=== PATIENT | female | born 1965 | race Caucasian/White ===

== ENCOUNTER 2017-05-14 22:42 | Emergency (ER) | payer OTHER ==
[~2017-05-14] VITALS: Ht 165.1 cm; Wt 86.4 kg
[~2017-05-14 22:42] MED LIST: AMIT10TA13 PO; IMIT100T PO; LORA1TAB PO; SIMV20 PO; VALI5TAB OR; VIT D3
[2017-05-14 22:45] VITALS: BP 156/95; PULSE 95; RESP 20; TEMP 98.2; O2SAT 96
[2017-05-14] MEDS ORDERED: DHEA50CA PO (22:57)
[2017-05-14] MEDS ORDERED: VITATAB11 PO (22:57)
[2017-05-14] MEDS ORDERED: [UNRECOGNIZED DRUG - OTHER] (22:57)
[2017-05-14] MEDS ORDERED: PANT20 PO (22:57)
[2017-05-14] MEDS ORDERED: ZOCO20TA PO (22:57)
[2017-05-14] MEDS ORDERED: LORA-474 PO (22:57)
[2017-05-14 22:59] VITALS: O2SAT 96
[2017-05-14] MEDS ORDERED: SODIUM CHLOR 0.9% 1000 ML INJ 1,000 ML IV SCH (23:00)
--- NOTE | 2017-05-14 23:00 | PD ---
HPI Chief Complaint: Cardiac Complaint Time Seen by Provider: 22:45 Travel History International Travel<30 days: No Contact w/Intl Traveler<30days: No Traveled to known affect area: No History of Present Illness HPI 51-year-old female complains of palpitation. Patient states that she has lightheadedness with dizziness for the past several days. Patient states that her blood pressure was elevated a few days ago when she checked it locally. Patient does not know the blood pressure reading. Patient denies any headache. Patient denies any visual change. Patient denies any neck pain. Patient denies any chest pain. Patient started having palpitation and tachycardia this evening. Patient states that tachycardia episode lasted about 15 minutes to half an hour. EMS was called. Patient states that the symptoms resolved before EMS arrived. Patient denies any abdominal pain. Patient denies any nausea vomiting diarrhea. Patient denies any fever chills. PFSH Past Medical History Blood Disorders: No Cancer: No Cardiovascular Problems: No Diabetes: No Endocrine: No Glaucoma: No Genitourinary: No Headaches: Yes (MIGRAINES) Hepatitis: No Hiatal Hernia: No Hypertension: No Immune Disorder: No Medical other: Yes (mild back problems) Musculoskeletal: No Neurologic: Yes Psychiatric: No Reproductive: No Respiratory: No Thyroid Disease: No Tetanus Vaccination: Unknown Influenza Vaccination: Yes ?: Not Past Surgical History Abdominal Surgery: No Cardiac Surgery: No Ear Surgery: No Endocrine Surgery: No Eye Surgery: No Genitourinary Surgery: No Gynecologic Surgery: Yes (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) Neurologic Surgery: Yes (brain ;tumor resection) Oral Surgery: No Pacemaker: No Thoracic Surgery: No Other Surgery: Yes Social History Alcohol Use: No Tobacco Use: No Substance Use: No Allergies-Medications (Allergen,Severity, Reaction): Coded Allergies: Sulfa (Sulfonamide Antibiotics) (Unverified Allergy, Severe, ACHES, NAUSEA , 03/15/17) Reported Meds & Prescriptions Reported Meds & Active Scripts Active Reported [Oil of Primose] Dhea (Prasterone (DHEA)) 50 Mg Cap 50 Mg PO DAILY Vitamin B Complex (B-Complex Vitamins) 1 Tab PO DAILY Zocor (Simvastatin) 20 Mg Tab 20 Mg PO DAILY Ativan (Lorazepam) 1 Mg Tab 1 Mg PO DAILY PRN Protonix (Pantoprazole Sodium) 20 Mg Tab 20 Mg PO DAILY [Vit D3] DAILY Review of Systems General / Constitutional: No: Fever Eyes: No: Visual changes HENT: No: Headaches Cardiovascular: Positive: Palpitations, Tachycardia, No: Chest Pain or Discomfort Respiratory: No: Shortness of Breath Gastrointestinal: No: Abdominal Pain Genitourinary: No: Dysuria Musculoskeletal: No: Pain Skin: No Rash Neurologic: No: Weakness Psychiatric: No: Depression Endocrine: No: Polydipsia Hematologic/Lymphatic: No: Easy Bruising Physical Exam Narrative GENERAL: Well-nourished, well-developed patient. SKIN: Focused skin assessment warm/dry. HEAD: Normocephalic. EYES: No scleral icterus. No injection or drainage. NECK: Supple, trachea midline. No JVD or lymphadenopathy. CARDIOVASCULAR: Regular rate and rhythm without murmurs, gallops, or rubs. RESPIRATORY: Breath sounds equal bilaterally. No accessory muscle use. GASTROINTESTINAL: Abdomen soft, non-tender, nondistended. MUSCULOSKELETAL: No cyanosis, or edema. BACK: Nontender without obvious deformity. No CVA tenderness. Neurologic exam normal. Data Data Last Documented VS Vital Signs Date Time Temp Pulse Resp B/P (MAP) Pulse Ox O2 Delivery O2 Flow Rate FiO2 05/15/17 03:05 96 Room Air 05/15/17 00:38 88 147/79 (101) 05/14/17 22:45 98.2 20 Orders Orders Electrocardiogram (05/14/17 22:54) Complete Blood Count With Diff (05/14/17 22:54) Comprehensive Metabolic Panel (05/14/17 22:54) Creatine Kinase (Cpk) (05/14/17 22:54) Troponin I (05/14/17 22:54) Prothrombin Time / Inr (Pt) (05/14/17 22:54) Act Partial Throm Time (Ptt) (05/14/17 22:54) Urinalysis - C+S If Indicated (05/14/17 22:54) Thyroid Stimulating Hormone (05/14/17 22:54) Chest, Single Ap (05/14/17 22:54) Iv Access Insert/Monitor (05/14/17 22:54) Ecg Monitoring (05/14/17 22:54) Oximetry (05/14/17 22:54) Sodium Chlor 0.9% 1000 Ml Inj (Ns 1000 M (05/14/17 23:00) Labs Laboratory Tests Test 05/14/17 23:00 05/14/17 23:03 White Blood Count 7.0 TH/MM3 Red Blood Count 4.93 MIL/MM3 Hemoglobin 14.9 GM/DL Hematocrit 44.2 % Mean Corpuscular Volume 89.5 FL Mean Corpuscular Hemoglobin 30.3 PG Mean Corpuscular Hemoglobin Concent 33.8 % Red Cell Distribution Width 14.0 % Platelet Count 304 TH/MM3 Mean Platelet Volume 8.8 FL Neutrophils (%) (Auto) 60.5 % Lymphocytes (%) (Auto) 32.3 % Monocytes (%) (Auto) 5.6 % Eosinophils (%) (Auto) 0.7 % Basophils (%) (Auto) 0.9 % Neutrophils # (Auto) 4.2 TH/MM3 Lymphocytes # (Auto) 2.3 TH/MM3 Monocytes # (Auto) 0.4 TH/MM3 Eosinophils # (Auto) 0.0 TH/MM3 Basophils # (Auto) 0.1 TH/MM3 CBC Comment DIFF FINAL Differential Comment Prothrombin Time 9.7 SEC Prothromb Time International Ratio 0.9 RATIO Activated Partial Thromboplast Time 27.2 SEC Blood Urea Nitrogen 9 MG/DL Creatinine 0.61 MG/DL Random Glucose 117 MG/DL Total Protein 8.1 GM/DL Albumin 4.1 GM/DL Calcium Level 10.0 MG/DL Alkaline Phosphatase 102 U/L Aspartate Amino Transf (AST/SGOT) 19 U/L Alanine Aminotransferase (ALT/SGPT) 31 U/L Total Bilirubin 0.4 MG/DL Sodium Level 138 MEQ/L Potassium Level 3.6 MEQ/L Chloride Level 104 MEQ/L Carbon Dioxide Level 26.5 MEQ/L Anion Gap 8 MEQ/L Estimat Glomerular Filtration Rate 103 ML/MIN Total Creatine Kinase 80 U/L Troponin I LESS THAN 0.02 NG/ML Thyroid Stimulating Hormone 3rd Gen 4.030 uIU/ML Urine Color COLORLESS Urine Turbidity CLEAR Urine pH 7.0 Urine Specific [place] 1.001 Urine Protein NEG mg/dL Urine Glucose (UA) NEG mg/dL Urine Ketones NEG mg/dL Urine Occult Blood NEG Urine Nitrite NEG Urine Bilirubin NEG Urine Urobilinogen LESS THAN 2.0 MG/DL Urine Leukocyte Esterase NEG Urine Squamous Epithelial Cells <1 /hpf Urine Mucus FEW /lpf Microscopic Urinalysis Comment CULT NOT INDICATED MDM Medical Decision Making Medical Screen Exam Complete: Yes Emergency Medical Condition: Yes Interpretation(s) 3:18 AM. Chest x-ray shows no acute consolidation. CBC within normal limit. CMP within normal limit. Cardiac enzymes are normal. TSH 4.030. UA is negative. Differential Diagnosis Differential diagnosis including cardiac arrhythmia, anxiety, hypothyroidism, electrolyte imbalance. Narrative Course 51-year-old female with transient palpitation tachycardia. Diagnosis Primary Impression: Tachycardia Patient Instructions: General Instructions Additional Instructions: Vistaril as needed. Follow-up with personal physician. Return if persistent problem or worse. Med/Other Pt SpecificInfo: Prescription(s) given Scripts Hydroxyzine Pamoate (Vistaril) 25 Mg Cap 25 MG PO TID Y for ANXIETY, #30 CAP 0 Refills Prov: Ritchie La MD 05/15/17 Disposition: 01 DISCHARGE HOME Condition: Stable Ritchie La MD May 14, 2017 23:00
[2017-05-14 23:28] LABS: BLOOD, URINE NEG (NEG); COMMENT (UR) CULT NOT INDICATED; CULTURE IF INDICATED CULT NOT INDICATED; GLUCOSE,URINE NEG (NEG); KETONE, URINE NEG (NEG); MUCUS URINE FEW /lpf (OCC); NITRITE,URINE NEG (NEG); SQUAMOUS EPITHELIAL CELL URINE <1 /hpf (0-5); URINE COLOR COLORLESS (YELLW/STRAW)
[2017-05-14 23:35] LABS: AUTOMATED NEUTROPHIL # 4.2 TH/MM3 (1.8-7.7); BASOPHIL # 0.1 TH/MM3 (0-0.2); BASOPHIL % 0.9 % (0.0-2.0); EOSINOPHIL % 0.7 % (0.0-4.0); HEMATOCRIT 44.2 % (35.0-46.0); HEMO FLAGS DIFF FINAL; LYMPH % 32.3 % (9.0-44.0); LYMPHOCYTE # 2.3 TH/MM3 (1.0-4.8); MEAN CELL VOLUME 89.5 FL (80.0-100.0); MEAN CORPUSCULAR HEMOGLOBIN 30.3 PG (27.0-34.0); MEAN CORPUSCULAR HGB CONC 33.8 % (32.0-36.0); MONO % 5.6 % (0.0-8.0); NEUT % 60.5 % (16.0-70.0); PLATELET COUNT 304 TH/MM3 (150-450); RED BLOOD COUNT 4.93 MIL/MM3 (4.00-5.30)
--- NOTE | 2017-05-14 23:49 | RADRPT ---
EXAM DATE/TIME: 05/14/2017 23:21 [facility] COMPARISON: No previous studies available for comparison. INDICATIONS : Palpitations. MEDICAL HISTORY : None. SURGICAL HISTORY : Right breast lumpectomy times two ENCOUNTER: Initial ACUITY: 1 day PAIN SCORE: 0/10 LOCATION: Bilateral chest FINDINGS: A single view of the chest demonstrates the lungs to be symmetrically aerated without evidence of mas s, infiltrate or effusion. The cardiomediastinal contours are unremarkable. Osseous structures are intact. CONCLUSION: Normal examination. Miki Garvin MD on May 14, 2017 at 23:46 Board Certified Radiologist. This report was verified electronically.
[2017-05-14 23:51] LABS: ALT (GPT) 31 U/L (10-53)
[2017-05-14 23:54] LABS: APTT (PATIENT) 27.2 SEC (24.3-30.1); INTERNATIONAL NORMALIZED RATIO 0.9 RATIO; PROTHROMBIN TIME - PATIENT 9.7 SEC (9.8-11.6)
[2017-05-15] LABS: ALKALINE PHOSPHATASE 102 U/L (45-117); TOTAL BILIRUBIN ADULT 0.4 MG/DL (0.2-1.0)
[2017-05-15 00:02] LABS: CREATINE KINASE 80 U/L (26-192)
[2017-05-15 00:04] LABS: ANION GAP 8 MEQ/L (5-15); AST (GOT) 19 U/L (15-37); BICARBONATE 26.5 MEQ/L (21.0-32.0); BLOOD UREA NITROGEN 9 MG/DL (7-18); CHLORIDE 104 MEQ/L (98-107); GLOMERULAR FILTRATION RATE 103 ML/MIN (>89); POTASSIUM 3.6 MEQ/L (3.5-5.1); SODIUM (NA) 138 MEQ/L (136-145)
[2017-05-15 00:38] VITALS: BP 147/79; PULSE 88; O2SAT 96
[2017-05-15] MEDS ORDERED: VIST25CA PO (03:23)
--- NOTE | 2017-05-15 07:34 | EKG ---
Date Performed: 05/14/2017 Time Performed: 22:55:57 PTAGE: 51 years EKG: Sinus rhythm NORMAL ECG No significant change from prior electrocardiogram. DOCTOR: Rohit Cummins Interpretating Date/Time 05/15/2017 07:32:47
== END 2017-05-15 03:41 | disposition home or self-care (01) ==
LOC: NEPC 22:42
DX: R00.0 Tachycardia, unspecified (principal); R42 Dizziness and giddiness; F41.9 Anxiety disorder, unspecified; Z79.899 Other long term (current) drug therapy
CPT/HCPCS: 71010; 80053; 81001; 82550; 84443; 84484; 85025; 85610; 85730; 93005; 96360; 99285; J7030